=== PATIENT | male | born 1940 | race Caucasian/White ===

== ENCOUNTER → 2017-12-04 | Outpatient (CLI) | payer MEDICARE, OTHER ==
[~2017-12-04] MED LIST: AMLO10; AMLO10 PO; DOCU100 PO; ELIQUIS5 MG PO; FISH OIL-OMEGA1 EACH PO; FOLI1 PO; GINKGO BILOBA30 MG PO; MULTI VITAMIN1 EACH PO; TAMS.4ER PO; XIIDRA1 EACH; XIIDRA1 EACH BOTHEYES
[2017-12-04 13:40] LABS: Stool Occult Bld Immuno 1 Negative (NEGATIVE)
== END | disposition home or self-care (01) ==
LOC: LAB 08:50
PROVIDERS: Internal Medicine Gastroenterology
DX: K57.90 Diverticulosis of intestine, part unspecified, without perforation or abscess without bleeding (principal); R10.32 Left lower quadrant pain; Z86.010 Personal history of colon polyps
CPT/HCPCS: 82274

== ENCOUNTER 2018-07-17 11:22 | Day surgery (SDC) | payer MEDICARE, OTHER ==
[~2018-07-17] VITALS: Ht 182.9 cm; Wt 83.9 kg
[~2018-07-17 11:22] MED LIST changes: -GINKGO BILOBA30 MG PO; -XIIDRA1 EACH
[2018-07-17] MEDS ORDERED: GINKGO BILOBA30 MG (12:01)
[2018-07-17] MEDS ORDERED: XIIDRA1 EACH (12:01)
== END 2018-07-17 14:20 | disposition home or self-care (01) ==
LOC: ORSCSDS 11:22
PROVIDERS: Internal Medicine Gastroenterology
PROC: 0DBK8ZX Excision of Ascending Colon, Via Natural or Artificial Opening Endoscopic, Diagnostic (ICD-10-PCS; principal; 2018-07-17 13:00)
DX: Z12.11 Encounter for screening for malignant neoplasm of colon (principal); D12.2 Benign neoplasm of ascending colon; K57.30 Diverticulosis of large intestine without perforation or abscess without bleeding; Z86.010 Personal history of colon polyps; G25.0 Essential tremor; I10 Essential (primary) hypertension; I48.2 Chronic atrial fibrillation; Z87.891 Personal history of nicotine dependence; Z79.01 Long term (current) use of anticoagulants; Z79.899 Other long term (current) drug therapy
CPT/HCPCS: 88305

== ENCOUNTER 2018-08-29 20:17 | Observation (INO) | payer MEDICARE, OTHER ==
[~2018-08-29] VITALS: Ht 182.9 cm; Wt 81.7 kg
[~2018-08-29 20:17] MED LIST changes: +GINKGO BILOBA30 MG PO; +XIIDRA1 EACH
[2018-08-29 20:44] LABS: BASOPHILS ABSOLUTE AUTO 0.01 K/mm3 (0.00-0.23); BASOPHILS PERCENT AUTO 0 % (0-2); EOSINOPHILS ABSOLUTE AUTO 0.11 K/mm3 (0.00-0.68); EOSINOPHILS PERCENT AUTO 2 % (0-6); Hemoglobin 13.6 g/dL (13.5-17.5); IMMATURE GRAN ABSOLUTE AUTO 0.01 K/mm3 (0.00-0.10); IMMATURE GRAN PERCENT AUTO 0 % (0-1); LYMPHOCYTES ABSOLUTE AUTO 1.26 K/mm3 (0.84-5.20); LYMPHOCYTES PERCENT AUTO 20 % (21-46); MONOCYTES ABSOLUTE AUTO 0.55 K/mm3 (0.16-1.47); MONOCYTES PERCENT AUTO 9 % (4-13); Mean Corpuscular HGB 31.8 pg (26.0-34.0); Mean Corpuscular HGB Conc 32.4 g/dL (31.5-36.5); Mean Corpuscular Volume 98 fL (80-100); Mean Platelet Volume 9.6 fL (9.1-12.4); NEUTROPHILS ABSOLUTE AUTO 4.34 K/mm3 (1.96-9.15); NEUTROPHILS PERCENT AUTO 69 % (41-73); Platelet Count 202 K/mm3 (150-400); RDW Coefficient Variation 13.2 % (11.7-14.2); RDW Standard Deviation 47.6 fL (35.1-46.3); Red Blood Cell Count 4.28 M/mm3 (4.30-5.90); White Blood Cell Count 6.28 K/mm3 (4.00-11.30)
[2018-08-29 21:15] LABS: Alanine Aminotransfer (ALT/SGP 22 U/L (12-78); Albumin, Blood 4.1 g/dL (3.4-5.0); Albumin/Globulin Ratio 1.1 (0.8-1.8); Alk Phos 122 U/L (50-136); Anion Gap 6 mmol/L (6-16); Aspartate Aminotrans (AST/SGOT 17 U/L (12-37); Bilirubin, Total 0.5 mg/dL (0.1-1.0); Blood Urea Nitrogen 14 mg/dL (8-24); Bun/Creatinine Ratio 16.2 (12.0-20.0); CO2, Blood 31 mmol/L (21-32); Calcium, Blood 9.2 mg/dL (8.5-10.1); Chloride, Blood 104 mmol/L (98-108); Creatinine, Blood 0.87 mg/dL (0.60-1.20); Globulin, Blood 3.7 g/dL (2.2-4.0); Glomerular Filtration Rate >60 (60-); Glucose, Blood 100 mg/dL (70-99); Potassium, Blood 3.5 mmol/L (3.5-5.5); Sodium, Blood 141 mmol/L (136-145); Total Protein, Blood 7.8 g/dL (6.4-8.2)
[2018-08-29 22:02] LABS: Source, Urine Clean Catch
[2018-08-29 22:09] LABS: Bilirubin, Urine Neg (Neg); Blood, Urine Neg (Neg); Glucose Qualitative, Urine Neg (Neg); Ketones, Urine Neg (Neg); Leukocyte Esterase, Urine Neg (Neg); Nitrite, Urine Neg (Neg); Protein, Urine Neg (Neg); Specific Gravity, Urine 1.005 (1.003-1.022); Urobilinogen, Urine NORM (Normal)
[2018-08-29 22:20] LABS: Appearance, Urine Clear (Clear); Color, Urine Yellow (P-Yellow)
[2018-08-29 23:00] LABS: International Normalized Ratio 1.17; Prothrombin Time Results 11.9 Sec (9.7-11.5)
[2018-08-29 23:02] LABS: Hematocrit 39.5 % (37.0-53.0); Hemoglobin 12.7 g/dL (13.5-17.5)
[2018-08-30 00:57] LABS: Hematocrit 37.3 % (37.0-53.0); Hemoglobin 12.4 g/dL (13.5-17.5)
[2018-08-30 06:48] LABS: Hematocrit 38.6 % (37.0-53.0); Hemoglobin 12.6 g/dL (13.5-17.5); Mean Corpuscular HGB 31.3 pg (26.0-34.0); Mean Corpuscular HGB Conc 32.6 g/dL (31.5-36.5); Mean Corpuscular Volume 96 fL (80-100); Mean Platelet Volume 9.9 fL (9.1-12.4); Platelet Count 175 K/mm3 (150-400); RDW Coefficient Variation 13.2 % (11.7-14.2); RDW Standard Deviation 47.2 fL (35.1-46.3); Red Blood Cell Count 4.02 M/mm3 (4.30-5.90); White Blood Cell Count 4.91 K/mm3 (4.00-11.30)
[2018-08-30 06:51] LABS: Hematocrit 38.7 % (37.0-53.0); Hemoglobin 12.7 g/dL (13.5-17.5)
[2018-08-30 07:12] LABS: Alanine Aminotransfer (ALT/SGP 18 U/L (12-78); Albumin, Blood 3.5 g/dL (3.4-5.0); Alk Phos 102 U/L (50-136); Anion Gap 6 mmol/L (6-16); Aspartate Aminotrans (AST/SGOT 13 U/L (12-37); Bilirubin, Total 0.5 mg/dL (0.1-1.0); Blood Urea Nitrogen 9 mg/dL (8-24); Bun/Creatinine Ratio 11.8 (12.0-20.0); CO2, Blood 29 mmol/L (21-32); Calcium, Blood 8.6 mg/dL (8.5-10.1); Chloride, Blood 106 mmol/L (98-108); Creatinine, Blood 0.76 mg/dL (0.60-1.20); Globulin, Blood 3.4 g/dL (2.2-4.0); Glomerular Filtration Rate >60 (60-); Glucose, Blood 105 mg/dL (70-99); Potassium, Blood 3.4 mmol/L (3.5-5.5); Sodium, Blood 141 mmol/L (136-145); Total Protein, Blood 6.9 g/dL (6.4-8.2)
[2018-08-30 13:12] LABS: Hematocrit 42.1 % (37.0-53.0); Hemoglobin 13.6 g/dL (13.5-17.5)
[2018-08-30 18:43] LABS: Hemoglobin 13.9 g/dL (13.5-17.5)
[2018-08-31 04:25] LABS: Hematocrit 40.9 % (37.0-53.0); Hemoglobin 13.5 g/dL (13.5-17.5)
== END 2018-08-31 12:08 | disposition home or self-care (01) ==
LOC: ER 20:17 → SURS 08-30 00:06
PROVIDERS: Emergency Medicine; Internal Medicine
DX: K62.5 Hemorrhage of anus and rectum (principal); I10 Essential (primary) hypertension; D50.0 Iron deficiency anemia secondary to blood loss (chronic); N40.0 Benign prostatic hyperplasia without lower urinary tract symptoms; N13.8 Other obstructive and reflux uropathy; E87.6 Hypokalemia; I48.91 Unspecified atrial fibrillation; I97.89 Other postprocedural complications and disorders of the circulatory system, not elsewhere classified; K57.30 Diverticulosis of large intestine without perforation or abscess without bleeding; K57.90 Diverticulosis of intestine, part unspecified, without perforation or abscess without bleeding; Z79.899 Other long term (current) drug therapy; Z86.010 Personal history of colon polyps; Z87.891 Personal history of nicotine dependence; Z79.01 Long term (current) use of anticoagulants
CPT/HCPCS: 36415; 71275; 74175; 80053; 81003; 85014; 85018; 85025; 85027; 85610; 86850; 86900; 86901; 93005; 93010; 96374; 99285-25; C9132; J3480; J7040; J7120; Q9967

== ENCOUNTER 2019-06-23 08:30 | Day surgery (SDC) | payer MEDICARE, OTHER ==
[~2019-06-23] VITALS: Ht 182.9 cm; Wt 85.1 kg
[2019-06-23] MEDS ORDERED: Inderal40 MG (09:58)
[2019-06-23] MEDS ORDERED: LOSA25 PO (09:59)
== END 2019-06-23 11:55 | disposition home or self-care (01) ==
LOC: ORSCSDS 08:30
PROVIDERS: Internal Medicine Gastroenterology
PROC: 0DB68ZX Excision of Stomach, Via Natural or Artificial Opening Endoscopic, Diagnostic (ICD-10-PCS; principal; 2019-06-23 10:45)
PROC: 0DB58ZX Excision of Esophagus, Via Natural or Artificial Opening Endoscopic, Diagnostic (ICD-10-PCS; principal; 2019-06-23 10:45)
PROC: 0D757ZZ Dilation of Esophagus, Via Natural or Artificial Opening (ICD-10-PCS; principal; 2019-06-23 10:45)
DX: R13.14 Dysphagia, pharyngoesophageal phase (principal); K22.70 Barrett's esophagus without dysplasia; K22.2 Esophageal obstruction; K44.9 Diaphragmatic hernia without obstruction or gangrene; I10 Essential (primary) hypertension; Z87.891 Personal history of nicotine dependence; I48.21 Permanent atrial fibrillation; Z79.01 Long term (current) use of anticoagulants; I25.10 Atherosclerotic heart disease of native coronary artery without angina pectoris; Z79.899 Other long term (current) drug therapy
CPT/HCPCS: 87081; 88305; 88342; J2704; J7120

== ENCOUNTER 2019-11-02 07:26 | Inpatient (IN) | payer MEDICARE, OTHER ==
[~2019-11-02] VITALS: Ht 177.8 cm; Wt 82.7 kg
[~2019-11-02 07:26] MED LIST changes: -AMLO10 PO; -DOCU100 PO; -ELIQUIS5 MG PO; -FOLI1 PO; -TAMS.4ER PO
[2019-11-02 07:56] LABS: BASOPHILS ABSOLUTE AUTO 0.01 K/mm3 (0.00-0.23); BASOPHILS PERCENT AUTO 0 % (0-2); EOSINOPHILS ABSOLUTE AUTO 0.09 K/mm3 (0.00-0.68); EOSINOPHILS PERCENT AUTO 2 % (0-6); Hematocrit 33.3 % (37.0-53.0); Hemoglobin 10.5 g/dL (13.5-17.5); IMMATURE GRAN ABSOLUTE AUTO 0.05 K/mm3 (0.00-0.10); IMMATURE GRAN PERCENT AUTO 1 % (0-1); LYMPHOCYTES PERCENT AUTO 10 % (21-46); MONOCYTES ABSOLUTE AUTO 0.46 K/mm3 (0.16-1.47); MONOCYTES PERCENT AUTO 8 % (4-13); Mean Corpuscular HGB 30.1 pg (26.0-34.0); Mean Corpuscular HGB Conc 31.5 g/dL (31.5-36.5); Mean Corpuscular Volume 95 fL (80-100); Mean Platelet Volume 9.8 fL (9.1-12.4); NEUTROPHILS ABSOLUTE AUTO 4.88 K/mm3 (1.96-9.15); NEUTROPHILS PERCENT AUTO 80 % (41-73); Platelet Count 158 K/mm3 (150-400); RDW Coefficient Variation 13.2 % (11.7-14.2); RDW Standard Deviation 46.1 fL (35.1-46.3); Red Blood Cell Count 3.49 M/mm3 (4.30-5.90); White Blood Cell Count 6.09 K/mm3 (4.00-11.30)
[2019-11-02 08:17] LABS: Alanine Aminotransfer (ALT/SGP 32 U/L (12-78); Albumin, Blood 3.2 g/dL (3.4-5.0); Albumin/Globulin Ratio 0.9 (0.8-1.8); Alk Phos 169 U/L (50-136); Anion Gap 5 mmol/L (6-16); Aspartate Aminotrans (AST/SGOT 32 U/L (12-37); Bilirubin, Total 0.6 mg/dL (0.1-1.0); Blood Urea Nitrogen 16 mg/dL (8-24); Bun/Creatinine Ratio 15.7 (12.0-20.0); CO2, Blood 29 mmol/L (21-32); Calcium, Blood 8.2 mg/dL (8.5-10.1); Chloride, Blood 103 mmol/L (98-108); Creatinine, Blood 1.02 mg/dL (0.60-1.20); Globulin, Blood 3.5 g/dL (2.2-4.0); Glomerular Filtration Rate >60 (60-); Glucose, Blood 118 mg/dL (70-99); Magnesium, Blood 1.4 mg/dL (1.6-2.4); Sodium, Blood 137 mmol/L (136-145); Total Protein, Blood 6.7 g/dL (6.4-8.2)
[2019-11-02 08:18] LABS: Troponin I <0.015 ng/mL (0.000-0.040)
[2019-11-02 09:47] LABS: Source, Urine Clean Catch
[2019-11-02 09:50] LABS: Bilirubin, Urine Neg (Neg); Blood, Urine 2+ (Neg); Glucose Qualitative, Urine Neg (Neg); Ketones, Urine Neg (Neg); Leukocyte Esterase, Urine Neg (Neg); Nitrite, Urine Neg (Neg); Protein, Urine 2+ (Neg); Urobilinogen, Urine NORM (Normal)
[2019-11-02 09:58] LABS: Appearance, Urine Clear (Clear); Color, Urine Pale Yellow (P-Yellow)
[2019-11-02 10:01] LABS: Bacteria Rare /hpf; Squamous Epithelial Cells Few /hpf (Few)
[2019-11-02 10:47] LABS: Source, Urine Catheter
[2019-11-02 10:50] LABS: Bilirubin, Urine Neg (Neg); Blood, Urine 2+ (Neg); Glucose Qualitative, Urine Neg (Neg); Ketones, Urine Neg (Neg); Leukocyte Esterase, Urine Neg (Neg); Nitrite, Urine Neg (Neg); Protein, Urine 1+ (Neg); Urobilinogen, Urine NORM (Normal)
[2019-11-02 10:57] LABS: Appearance, Urine Clear (Clear); Color, Urine Yellow (P-Yellow)
[2019-11-02 10:58] LABS: Red Blood Cells, Urine 0-2 /hpf (0-2); White Blood Cells, Urine 0-2 /hpf (0-5)
[2019-11-02 10:59] LABS: Bacteria Rare /hpf; Squamous Epithelial Cells Rare /hpf (Few)
[2019-11-02 12:03] LABS: PO2 Arterial 55.3 mmHg (80-100); pH Blood Arterial 7.41 (7.35-7.45)
[2019-11-02] MEDS ORDERED: ELIQUIS5 MG PO (12:40)
[2019-11-02] MEDS ORDERED: AMLO10 PO (12:40)
[2019-11-02] MEDS ORDERED: FOLI1 PO (12:40)
[2019-11-02] MEDS ORDERED: TAMS.4ER PO (12:40)
[2019-11-02] MEDS ORDERED: PRILOSEC OTC20 MG PO (12:41)
[2019-11-02] MEDS ORDERED: Inderal40 MG PO (12:41)
[2019-11-02] MEDS ORDERED: LOSA25 PO (12:41)
[2019-11-02] MEDS ORDERED: ATORVASTATIN CA20 MG PO (12:42)
[2019-11-02] MEDS ORDERED: DOCU100 PO (14:31)
[2019-11-02 18:02] LABS: Hematocrit 34.6 % (37.0-53.0); Hemoglobin 11.1 g/dL (13.5-17.5); Mean Corpuscular HGB 30.1 pg (26.0-34.0); Mean Corpuscular HGB Conc 32.1 g/dL (31.5-36.5); Mean Corpuscular Volume 94 fL (80-100); Mean Platelet Volume 9.9 fL (9.1-12.4); Platelet Count 174 K/mm3 (150-400); RDW Coefficient Variation 13.1 % (11.7-14.2); RDW Standard Deviation 44.9 fL (35.1-46.3); Red Blood Cell Count 3.69 M/mm3 (4.30-5.90); White Blood Cell Count 8.85 K/mm3 (4.00-11.30)
--- NOTE | 2019-11-03 04:55 | NUR ---
1855 PT ARRIVED TO UNIT VIA STRETCHER. A/O X4. PLEASANT AND COOPERATIVE. DENIES, PAIN, NAUSEA, SOB. ON 2 L VIA NASAL CANNULA SATTING AT 96% PT WAS ORIENTED TO ROOM AND STAFF. LUCY PRESENT AND WAS PUT IN IN THE ER. DRAINING CLEAR YELLOW URINE. VSS. CURRENTLY ON BEDREST. WILL CONTINUE TO MONITOR.
[2019-11-03 06:04] LABS: BASOPHILS ABSOLUTE AUTO 0.02 K/mm3 (0.00-0.23); BASOPHILS PERCENT AUTO 0 % (0-2); EOSINOPHILS ABSOLUTE AUTO 0.12 K/mm3 (0.00-0.68); EOSINOPHILS PERCENT AUTO 2 % (0-6); Hematocrit 34.3 % (37.0-53.0); Hemoglobin 10.9 g/dL (13.5-17.5); IMMATURE GRAN ABSOLUTE AUTO 0.03 K/mm3 (0.00-0.10); IMMATURE GRAN PERCENT AUTO 0 % (0-1); LYMPHOCYTES ABSOLUTE AUTO 0.61 K/mm3 (0.84-5.20); LYMPHOCYTES PERCENT AUTO 8 % (21-46); MONOCYTES ABSOLUTE AUTO 0.71 K/mm3 (0.16-1.47); MONOCYTES PERCENT AUTO 9 % (4-13); Mean Corpuscular HGB 29.9 pg (26.0-34.0); Mean Corpuscular HGB Conc 31.8 g/dL (31.5-36.5); Mean Corpuscular Volume 94 fL (80-100); NEUTROPHILS ABSOLUTE AUTO 6.25 K/mm3 (1.96-9.15); NEUTROPHILS PERCENT AUTO 81 % (41-73); Platelet Count 181 K/mm3 (150-400); RDW Coefficient Variation 13.2 % (11.7-14.2); RDW Standard Deviation 45.5 fL (35.1-46.3); Red Blood Cell Count 3.65 M/mm3 (4.30-5.90); White Blood Cell Count 7.74 K/mm3 (4.00-11.30)
[2019-11-03 06:21] LABS: Anion Gap 6 mmol/L (6-16); Blood Urea Nitrogen 17 mg/dL (8-24); Bun/Creatinine Ratio 17.6 (12.0-20.0); CO2, Blood 29 mmol/L (21-32); Calcium, Blood 8.3 mg/dL (8.5-10.1); Chloride, Blood 103 mmol/L (98-108); Creatinine, Blood 0.97 mg/dL (0.60-1.20); Glomerular Filtration Rate >60 (60-); Glucose, Blood 106 mg/dL (70-99); Magnesium, Blood 1.8 mg/dL (1.6-2.4); Potassium, Blood 3.7 mmol/L (3.5-5.5); Sodium, Blood 138 mmol/L (136-145)
--- NOTE | 2019-11-03 07:37 | NUR ---
BUSINESS PROCESS REPRESENTATIVE SUMMARY PT A/O X4 WITH BASELINE DEMENTIA. DENIES SOB, NAUSEA, CHEST PAIN. PT DID COMPLAIN MINOR BACK PAIN FROM LAYING ON THE BED. PT REPOSITIONED AND PILLOW WAS PLACED WELL A HEATING PAD. HE STATED THAT HAS HELPED A LOT. ORTHOSTATIC VITALS WERE NEGATIVE. HE AMBULATED TO BATHROOM WITH FWW WITH 1 ASSIST. HE DID NOT COMPLAIN OF DIZZINESS AND AMBULATED WELL PER GLUE MIXER REPORT. CHRONIC A.FIB ON EQLIUS. PT HAD A 3.1 SECOND PAUSE PER PRESSURE VESSEL INSPECTOR EARLIER IN THE SHIFT AND CONVERTED BACK TO A. FIB IN THE HIGH 40'S. HE WAS ASYMPTOMATIC. HE HAD ANOTHER 3 SECOND PAUSE AND CONVERTED BACK TO A. FIB IN HIGH 50'S AT 0630. HE WAS TALKING ON THE PHONE AND FELT AT THIS TIME. DR. RUVALCABA NOTIFIED. NO NEW ORDERS. PT SLEPT WELL TONIGHT. COOPERATIVE AND PLEASANT. CALL LIGHT WITHIN REACH.
[2019-11-03 11:28] LABS: Free Thyroxine 1.16 ng/dL (0.70-1.60)
--- NOTE | 2019-11-03 14:41 | NUR ---
PATIENT PERMISSION PATIENT PROVIDED THIS STUDENT NURSE PERMISSION TO PROVIDE CARE ON 11/03/2019 FROM [id number].
--- NOTE | 2019-11-03 17:30 | NUR ---
SHIFT SUMMARY PT AXO, PLEASANT AND COOPERATIVE WITH CARE. PT ON TELE RUNNING A FIB AT [address] CHAMBERS NOTIFIED OF BRADYCARDIA ON MEDICAL DEVICE AND THIS AM, INSTRUCTED NURSE TO GIVE MEDS PER EMAR INCLUDING PROPRANOLOL. PT UP WITH 1 ASSIST WITH FWW AND GB. AYALA REMOVED AT 1140, AWAITING PT VOID AT THIS TIME. AT 1616 PT HAD 217 RETAINED IN BLADDER. PT DENIED URGE TO VOID AT THAT TIME. BED IN LOW POSITION, CALL LIGHT WITHIN REACH. FAMILY PRESENT IN ROOM THROUGHOUT THE SHIFT. PT 97% ON 3L, ATTEMPTING TO TITRATE DOWN AT THIS TIME. AT 1710 EMA MACIAS CALLED FROM PCU TO NOTIFY NURSE THAT PT HAD ANOTHER 3 SECOND PAUSE. STRIP ON CHART. DR CHAMBERS NOTIFIED WHO ORDERED CARDIOLOGY CONSULT.
--- NOTE | 2019-11-04 04:24 | NUR ---
SHIFT SUMMARY: PT BRADYCARDIC TONIGHT WITH PULSE OF 48. RECHECKED MANUALLY AT 0540, PULSE 68. PT AWAKE, ALERT, AND RESPONSIVE. PT DENIES DIZZINESS OR LIGHTHEADEDNESS UPON SITTING/STANDING/AMBULATING. ENCOURAGED TO CALL FOR ASSIST EACH TIME PT GETS UP. BED ALARM TURNED ON D/T ONE ATTEMPT TO SELF T/F. PT HAS VOIDED 1X SO FAR TONIGHT. LACERATIONS ON OCCIPITAL SCALP JONAS AND SCABBED. MAINTAINING SATS 90-92% ON RA. NO ACUTE CHANGES OVERNIGHT. WILL CONT TO MONITOR.
[2019-11-04 09:12] LABS: CHOL/HDL RATIO 2.4; Cholesterol 80 mg/dL (50-200); HDL Cholesterol 33 mg/dL (>39); LDL/HDL RATIO 1.1; Low Density Lipoprotein Chol 37 mg/dL (0-110); Triglycerides 51 mg/dL (30-160); Very Low Density Lipoprot Chol 10 mg/dL (6-32)
--- NOTE | 2019-11-04 18:36 | NUR ---
PT IS A/OX3, PLEASANT AND COOPERATIVE, THE PT IS UP WITH STAND BY ASSIST, THE PT APPEARS TO BE BREATHING EASILY ON RA, AT THIS TIME, PTS HR THIS AM HAD DROPPED INTO THE 50'S FOR A SHORT TIME, HOWEVER PER TELE HE HAS BEEN IN THE 70-80'S RANGE, THE PT DENIED ANY CHEST PAIN T/O THE DAY, THIS AFTERNOON THE PT REPORTED BACK PAIN A CALL WAS MADE TO DR. CHAMBERS AND TYLENOL WAS ORDERED FOR PAIN, EGG CRATE MATTRESS APPLIED TO THE BED PER HIS REQUEST, CALL LIGHT IN REACH, FAMILY AT THE BEDSIDE AT THIS TIME
--- NOTE | 2019-11-05 04:11 | NUR ---
SHIFT SUMMARY ADMITTED FOR SYNCOPE. FULL CODE. IS POA. FOUND TO BE BRADYCARDIC. CARDIAC CONSULT ELINA IS MONITORING FOR BRADYCARDIA. TELEMETRY THIS SHIFT: AFIB @ 75 BPM THIS SHIFT. HOME MED PROPANALOL DC'D. PT HAS RESCHEDULED [facility] FOLLOW UP FOR AAA REPAIR. CARDIAC DIET, RA, A&O X4, STANDBY ASSIST TO BATHROOM. MAY DC TODAY IF CONTINUING TO SHOW IMPROVEMENT. HX: FELL AT HOME, CAD, COPD, BPH, AFIB, HTN, TREMORS.
--- NOTE | 2019-11-05 13:56 | NUR ---
PT DISCHARGED THE PT VERBALIZED UNDERSTANDING OF THE DC INSTRUCTIONS, APPOINTMENTS WERE MADE FOR FOLLW UP PRIOR TO THE PTS DC, A ZOEL HEART MONITOR WAS APPLIED BY THE HEART CENTER AND INSTRUCTION WERE GIVEN BY THEM TO THE PT, HE VERBALIZED THAT HE UNDERSTOOD THIER INSTRUCTIONS, PT WAS TRANSFERED VIA WHEELCHAIR, THE PT APPEARED TO BE BREATHING EASILY ON RA, THE PT DENIED ANY DIZZINESS/LIGHTHEADEDNESS T/O THE DAY
== END 2019-11-05 13:55 | disposition home or self-care (01) | DRG 310 ==
LOC: ER 07:26 → ERHOLD 13:17 → MEDS 19:55
PROVIDERS: Emergency Medicine; Hospitalist; Internal Medicine Cardiovascular Disease; ADMIT Hospitalist
DX: I49.8 Other specified cardiac arrhythmias (principal); T44.7X5A Adverse effect of beta-adrenoreceptor antagonists, initial encounter; R09.02 Hypoxemia; K21.9 Gastro-esophageal reflux disease without esophagitis; I48.21 Permanent atrial fibrillation; N40.1 Benign prostatic hyperplasia with lower urinary tract symptoms; R33.8 Other retention of urine; I71.9 Aortic aneurysm of unspecified site, without rupture; I25.10 Atherosclerotic heart disease of native coronary artery without angina pectoris; I11.9 Hypertensive heart disease without heart failure; I34.0 Nonrheumatic mitral (valve) insufficiency; I87.2 Venous insufficiency (chronic) (peripheral); E66.3 Overweight; E83.42 Hypomagnesemia; J44.9 Chronic obstructive pulmonary disease, unspecified; E78.5 Hyperlipidemia, unspecified; R25.1 Tremor, unspecified; Z79.899 Other long term (current) drug therapy; Z79.01 Long term (current) use of anticoagulants; Z87.891 Personal history of nicotine dependence; Z68.26 Body mass index [BMI] 26.0-26.9, adult
CPT/HCPCS: 36415; 36600; 51702; 51798; 70450; 71046; 80048; 80053; 80061; 81001; 82803; 83735; 84439; 84443; 84484; 85025; 85027; 93005; 93010; 93306; 96365-59; 96366-59; 97110; 97116; 97161; 99285-25; A9270; G0378; J3475

== ENCOUNTER → 2020-02-24 | Outpatient (CLI) | payer MEDICARE, OTHER ==
[~2020-02-24] MED LIST changes: +AMLO10 PO; +ATORVASTATIN CA20 MG PO; +DOCU100 PO; +ELIQUIS5 MG PO; +FOLI1 PO; +Inderal40 MG PO; +LOSA25 PO; +PRILOSEC OTC20 MG PO; +TAMS.4ER PO
[2020-02-24 14:10] LABS: Stool Occult Bld Immuno 1 Positive (NEGATIVE)
== END | disposition home or self-care (01) ==
LOC: LAB 08:43 → LAB SHORT 08:43
PROVIDERS: Internal Medicine Cardiovascular Disease
DX: I48.91 Unspecified atrial fibrillation (principal)
CPT/HCPCS: G0328

== ENCOUNTER 2020-03-19 12:49 | Day surgery (SDC) | payer MEDICARE, OTHER ==
[~2020-03-19] VITALS: Ht 182.9 cm; Wt 85.5 kg
--- NOTE | 2020-03-19 14:21 | NUR ---
Ambulatory in Day Surgery. History, Chart, Medications and Allergies reviewed before start of procedure. Lungs clear T/O to Auscultation. Patient confirms NPO status and agrees with scheduled surgery. Pre-Op teaching done. Pt verbalizes understanding. Patient States Post-Procedure ride home has been arranged.
--- NOTE | 2020-03-19 14:43 | NUR ---
03/19/20 1443 ANNETTE AWAN History, Chart, Medications and Allergies reviewed before start of procedure. 3-LEAD EKG REVIEWED WITH PHYSICIAN PRIOR TO START OF PROCEDURE. O2 VIA N/C INTACT THROUGHOUT SEDATION/PROCEDURE. MONITOR INTACT WITH CONTINUOUS PULSE OXIMETRY AND INTERMITTENT BP. PATIENT DETERMINED TO BE ASA APPROPRIATE FOR PROPOFOL SEDATION PRIOR TO START OF PROCEDURE BY DR. EDDY
--- NOTE | 2020-03-19 15:42 | NUR ---
PT ASSISTED TO THE BATHROOM VIA WHEELCHAIR. IV DC'D INTACT.
--- NOTE | 2020-03-19 15:53 | NUR ---
Discharge instructions reviewed with patient. Patient verbalizes understanding. Copy given to patient to take home. Patient States Post-Procedure ride home has been arranged. Discharged via wheelchair to private car for ride home.
[2020-04-24] MEDS ORDERED: ONDA4ODT MM (14:02)
== END 2020-03-19 15:55 | disposition home or self-care (01) ==
LOC: ORSCMMR 12:49 → ORD 13:30 → ORSCMMR 15:55
PROVIDERS: Internal Medicine Gastroenterology
PROC: 0D568ZZ Destruction of Stomach, Via Natural or Artificial Opening Endoscopic (ICD-10-PCS; principal; 2020-03-19 13:30)
DX: R19.5 Other fecal abnormalities (principal); K31.819 Angiodysplasia of stomach and duodenum without bleeding; K57.10 Diverticulosis of small intestine without perforation or abscess without bleeding; K44.9 Diaphragmatic hernia without obstruction or gangrene; D64.9 Anemia, unspecified; Z87.891 Personal history of nicotine dependence; I48.91 Unspecified atrial fibrillation; Z79.899 Other long term (current) drug therapy; Z11.59 Encounter for screening for other viral diseases
CPT/HCPCS: 36415; 82607; 82728; 82746; 82784; 83516; 83540; 83550; 84439; 84443; 85045; 86255; J2704; J7120; U0002

== ENCOUNTER 2020-03-28 07:22 | Observation (INO) | payer MEDICARE, OTHER ==
[2020-03-28] MEDS ORDERED: AMLO10 PO (07:49)
[2020-03-28] MEDS ORDERED: ACET500 PO (07:49)
[2020-03-28] MEDS ORDERED: ELIQUIS2.5 MG PO (07:50)
[2020-03-28] MEDS ORDERED: ATOR20 PO (07:50)
[2020-03-28] MEDS ORDERED: DOCU100 PO (07:50)
[2020-03-28] MEDS ORDERED: CALCIPOTRIENE60 GM TOP (07:50)
[2020-03-28] MEDS ORDERED: FERSU300 PO (07:51)
[2020-03-28] MEDS ORDERED: FOLI1 PO (07:51)
[2020-03-28] MEDS ORDERED: FISH OIL PO (07:51)
[2020-03-28] MEDS ORDERED: Ginkgo Biloba40 M1 PO (07:54)
[2020-03-28] MEDS ORDERED: ICAPS AREDS SO1 EACH (07:54)
[2020-03-28] MEDS ORDERED: TAMS.4ER PO (07:54)
[2020-03-28] MEDS ORDERED: Loratadine10 MG PO (07:54)
[2020-03-28] MEDS ORDERED: XIIDRA1 EACH BOTHEYES (07:55)
[2020-03-28 08:19] LABS: BASOPHILS ABSOLUTE AUTO 0.02 K/mm3 (0.00-0.23); BASOPHILS PERCENT AUTO 0 % (0-2); EOSINOPHILS ABSOLUTE AUTO 0.06 K/mm3 (0.00-0.68); EOSINOPHILS PERCENT AUTO 1 % (0-6); IMMATURE GRAN ABSOLUTE AUTO 0.05 K/mm3 (0.00-0.10); IMMATURE GRAN PERCENT AUTO 1 % (0-1); LYMPHOCYTES ABSOLUTE AUTO 0.54 K/mm3 (0.84-5.20); LYMPHOCYTES PERCENT AUTO 7 % (21-46); MONOCYTES ABSOLUTE AUTO 0.55 K/mm3 (0.16-1.47); MONOCYTES PERCENT AUTO 7 % (4-13); Mean Corpuscular HGB 25.4 pg (26.0-34.0); Mean Corpuscular Volume 85 fL (80-100); NEUTROPHILS ABSOLUTE AUTO 6.97 K/mm3 (1.96-9.15); NEUTROPHILS PERCENT AUTO 85 % (41-73); Platelet Count 213 K/mm3 (150-400); RDW Coefficient Variation 17.3 % (11.7-14.2); RDW Standard Deviation 51.7 fL (35.1-46.3); Red Blood Cell Count 3.54 M/mm3 (4.30-5.90); White Blood Cell Count 8.19 K/mm3 (4.00-11.30)
[2020-03-28 08:25] LABS: Calcium, Ionized (POC) 1.15 mmol/L (1.10-1.46); Chloride (POC) 102 mmol/L (98-108); Creatinine (POC) 0.9 mg/dL (0.8-1.3); Glucose (ISTAT POC) 106 mg/dL (70-99); Hemoglobin (POC) 10.2 g/dL (13.5-17.5); Potassium (POC) 3.8 mmol/L (3.5-5.5); Sodium (POC) 139 mmol/L (135-148); Total CO2 (POC) 25 mmol/L (21-32)
[2020-03-28 08:37] LABS: Alanine Aminotransfer (ALT/SGP 18 U/L (12-78); Albumin, Blood 2.8 g/dL (3.4-5.0); Albumin/Globulin Ratio 0.7 (0.8-1.8); Alk Phos 144 U/L (50-136); Anion Gap 6 mmol/L (6-16); Aspartate Aminotrans (AST/SGOT 19 U/L (12-37); Bilirubin, Total 0.8 mg/dL (0.1-1.0); Blood Urea Nitrogen 24 mg/dL (8-24); Bun/Creatinine Ratio 25.1 (12.0-20.0); CO2, Blood 27 mmol/L (21-32); Calcium, Blood 8.4 mg/dL (8.5-10.1); Chloride, Blood 106 mmol/L (98-108); Creatinine, Blood 0.96 mg/dL (0.60-1.20); Glomerular Filtration Rate >60 (60-); Glucose, Blood 106 mg/dL (70-99); Potassium, Blood 3.8 mmol/L (3.5-5.5); Sodium, Blood 139 mmol/L (136-145); Total Protein, Blood 6.8 g/dL (6.4-8.2)
--- NOTE | 2020-03-28 10:55 | NUR ---
echocardiogram with bubble study completed
[2020-03-28] MEDS ORDERED: LOSARTAN POTASS25 M2 PO (11:52)
[2020-03-28] MEDS ORDERED: OMEP20ER PO (11:53)
[2020-03-28] MEDS ORDERED: MULTI VITAMIN1 EACH PO (11:53)
[2020-03-28] MEDS ORDERED: MAGNESIUM OXID500 MG PO (14:44)
--- NOTE | 2020-03-28 17:12 | NUR ---
SHIFT SUMMARY: PT ARRIVED FROM THE ER AROUND 1430. PT ARRIVED TO THE UNIT VIA W/C. VSS. HE REPORTED NO PAIN OR NAUSEA DURING SHIFT. PT IS HAVING BLURRY VISION WHICH IS MAKING IT DIFFICULT FOR HIM TO READ THINGS. PT IS A&O AND IS ABLE TO AMBULATE TO THE RESTROOM WITH WALKER AND 1 PERSON STANDBY. DAUGHTER CAME TO ROOM WITH PT BUT IS NOW NOT IN THE ROOM. WILL CONTINUE TO MONITOR PT UNTIL GIVING REPORT TO NIGHT RN.
[2020-03-29 05:36] LABS: Hematocrit 25.7 % (37.0-53.0); Hemoglobin 7.9 g/dL (13.5-17.5); Mean Corpuscular HGB 25.6 pg (26.0-34.0); Mean Corpuscular HGB Conc 30.7 g/dL (31.5-36.5); Mean Corpuscular Volume 83 fL (80-100); Mean Platelet Volume 9.9 fL (9.1-12.4); Platelet Count 213 K/mm3 (150-400); RDW Coefficient Variation 17.4 % (11.7-14.2); RDW Standard Deviation 51.9 fL (35.1-46.3); Red Blood Cell Count 3.08 M/mm3 (4.30-5.90); White Blood Cell Count 5.36 K/mm3 (4.00-11.30)
[2020-03-29 05:56] LABS: Anion Gap 4 mmol/L (6-16); Blood Urea Nitrogen 19 mg/dL (8-24); Bun/Creatinine Ratio 21.5 (12.0-20.0); CO2, Blood 30 mmol/L (21-32); Calcium, Blood 8.2 mg/dL (8.5-10.1); Chloride, Blood 103 mmol/L (98-108); Creatinine, Blood 0.88 mg/dL (0.60-1.20); Glomerular Filtration Rate >60 (60-); Glucose, Blood 96 mg/dL (70-99); Potassium, Blood 4.1 mmol/L (3.5-5.5); Sodium, Blood 137 mmol/L (136-145)
--- NOTE | 2020-03-29 07:52 | NUR ---
ANESTHESIOLOGY MEDICAL DOCTOR SUMMARY Patient Alert and Oriented X4. slight short term memory deficit at times. Evening Neuro checks were completely benign at both 2030 and 0100 with exception of almost total left field cut. Toward morning at 0439, left sided peripheral vision had increased by approx 45%. No complaints of headache, dizziness or discomfort. Patient does have a very mild essential tremor that he has had for years in [facility].
--- NOTE | 2020-03-29 15:21 | NUR ---
PATIENT ALERT AND ORIENTED. ABLE TO MAKE NEEDS KNOW. DENIES PAIN AND DISCOMFORT. COOPERATIVE AND PLEASANT WITH STAFF. VITALS STABLE. THE ONLY NOTED DEFICIT WAS A VISUAL CUT TO HIS LEFT EYE. ASSIST FROM THAT THE PATIENT IS PROGRESSING WELL. PATIENT RESTING IN ROOM AT THIS TIME. WILL CONTINUE TO MONITOR AND PROVIDE CARE NEEDED.
--- NOTE | 2020-03-29 16:28 | NUR ---
Initial spiritual care note: Mr. Schultz accepted prayer at [facility]. He has a strong joann and is deeply connected to his joann community. His doctor osteopathic is making hospital visits, providing prayer and spiritism sales counselor. No needs presented. I will remain available.
--- NOTE | 2020-03-30 06:16 | NUR ---
SHIFT SUMMARY A/O, ABLE TO MAKE NEEDS KNOWN. COOPERATIVE WITH CARE. CALLS AND ANSWERS QUESTIONS APPROPRIATELY. UP /c SBA TO BATHROOM WITH FWW; STEADY GAIT NOTED. NO C/O PAIN/DISCOMFORT. STATED ABLE TO REST MUCH OF THE NIGHT. TELE RUNNING AFIB IN 60's PER PCU OFFICE MANAGER RECEPTIONIST. ANTICIPATING DC TODAY /c HOME HEALTH. NO ACUTE CHANGES NOTED OVERNIGHT. BED REAMINS IN LOWEST POSITION. CALL LIGHT AND BELONGINGS WITHIN REACH. WCTM. REPORT TO ONCOMING RN.
--- NOTE | 2020-03-30 07:18 | NUR ---
ASSUMED PATIENT CARE. PATIENT RESTING COMFORTABLY IN BED, NO SIGNS OF ACUTE DISTRESS, WCTM.
[2020-03-30] MEDS ORDERED: ASPI81CH PO (14:46)
--- NOTE | 2020-03-30 15:17 | NUR ---
PATIENT PROVIDED DISCHARGE INFO REGARDING FOLLOW-UP PLANS, REASONS TO CALL DOCTOR, AND MEDICATION INFO. PATIENT AND FAMILY VERBALIZED UNDERSTANDING. NO SIGNS OF ACUTE DISTRESS.
[2020-04-24] MEDS ORDERED: ONDA4ODT MM (14:02)
== END 2020-03-30 15:42 | disposition home health service (06) ==
LOC: ER 07:22 → MEDS 11:07 → ERHOLD 11:07 → MEDS 14:28
PROVIDERS: Emergency Medicine; Nurse Practitioner Acute Care; ADMIT Internal Medicine
DX: I63.9 Cerebral infarction, unspecified (principal); I71.4 Abdominal aortic aneurysm, without rupture; I48.91 Unspecified atrial fibrillation; N40.0 Benign prostatic hyperplasia without lower urinary tract symptoms; I10 Essential (primary) hypertension; Z79.82 Long term (current) use of aspirin; Z79.899 Other long term (current) drug therapy; E78.5 Hyperlipidemia, unspecified; Z87.891 Personal history of nicotine dependence; D50.9 Iron deficiency anemia, unspecified; Z79.01 Long term (current) use of anticoagulants
CPT/HCPCS: 36415; 70450; 70496; 70498; 80047; 80048; 80053; 85014; 85025; 85027; 93005; 93010; 93306; 96360-59; 96361; 97112; 97162; 97165; 97535; 99285-25; A9270-GY; G0378; J7030; Q9967

== ENCOUNTER 2020-05-12 09:06 | Day surgery (SDC) | payer MEDICARE, OTHER ==
[~2020-05-12] VITALS: Ht 182.9 cm; Wt 80.5 kg
[~2020-05-12 09:06] MED LIST changes: +ACET500 PO; +ASPI81CH PO; +ATOR20 PO; +CALCIPOTRIENE60 GM TOP; +ELIQUIS2.5 MG PO; +FERSU300 PO; +FISH OIL PO; +Ginkgo Biloba40 M1 PO; +ICAPS AREDS SO1 EACH; +LOSARTAN POTASS25 M2 PO; +Loratadine10 MG PO; +MAGNESIUM OXID500 MG PO; +OMEP20ER PO; +ONDA4ODT MM
== END 2020-05-12 12:00 | disposition home or self-care (01) ==
LOC: ORSCSDS 09:06
PROVIDERS: Internal Medicine Gastroenterology
PROC: 0D568ZZ Destruction of Stomach, Via Natural or Artificial Opening Endoscopic (ICD-10-PCS; principal; 2020-05-12 10:30)
DX: K31.819 Angiodysplasia of stomach and duodenum without bleeding (principal); D50.9 Iron deficiency anemia, unspecified; I10 Essential (primary) hypertension; Z87.891 Personal history of nicotine dependence; I48.91 Unspecified atrial fibrillation; Z79.01 Long term (current) use of anticoagulants; Z79.899 Other long term (current) drug therapy
CPT/HCPCS: J2405; J2704; J7120

== ENCOUNTER → 2020-06-01 | Outpatient (CLI) | payer MEDICARE, OTHER ==
[2020-06-01 11:00] LABS: BASOPHILS ABSOLUTE AUTO 0.02 K/mm3 (0.00-0.23); BASOPHILS PERCENT AUTO 0 % (0-2); EOSINOPHILS ABSOLUTE AUTO 0.17 K/mm3 (0.00-0.68); EOSINOPHILS PERCENT AUTO 3 % (0-6); Hematocrit 35.7 % (37.0-53.0); Hemoglobin 11.2 g/dL (13.5-17.5); IMMATURE GRAN ABSOLUTE AUTO 0.01 K/mm3 (0.00-0.10); IMMATURE GRAN PERCENT AUTO 0 % (0-1); LYMPHOCYTES ABSOLUTE AUTO 0.54 K/mm3 (0.84-5.20); LYMPHOCYTES PERCENT AUTO 11 % (21-46); MONOCYTES ABSOLUTE AUTO 0.46 K/mm3 (0.16-1.47); MONOCYTES PERCENT AUTO 9 % (4-13); Mean Corpuscular HGB 27.1 pg (26.0-34.0); Mean Corpuscular HGB Conc 31.4 g/dL (31.5-36.5); Mean Corpuscular Volume 86 fL (80-100); Mean Platelet Volume 9.5 fL (9.1-12.4); NEUTROPHILS ABSOLUTE AUTO 3.96 K/mm3 (1.96-9.15); NEUTROPHILS PERCENT AUTO 77 % (41-73); Platelet Count 195 K/mm3 (150-400); RDW Coefficient Variation 22.2 % (11.7-14.2); RDW Standard Deviation 68.9 fL (35.1-46.3); Red Blood Cell Count 4.14 M/mm3 (4.30-5.90); White Blood Cell Count 5.16 K/mm3 (4.00-11.30)
[2020-06-01 11:14] LABS: Alanine Aminotransfer (ALT/SGP 15 U/L (12-78); Albumin, Blood 3.3 g/dL (3.4-5.0); Albumin/Globulin Ratio 0.8 (0.8-1.8); Alk Phos 168 U/L (40-126); Anion Gap 5 mmol/L (6-16); Aspartate Aminotrans (AST/SGOT 16 U/L (12-37); Bilirubin, Total 0.5 mg/dL (0.1-1.0); Blood Urea Nitrogen 12 mg/dL (8-24); Bun/Creatinine Ratio 11.4 (12.0-20.0); CO2, Blood 34 mmol/L (21-32); Calcium, Blood 8.5 mg/dL (8.5-10.1); Chloride, Blood 100 mmol/L (98-108); Creatinine, Blood 1.05 mg/dL (0.60-1.20); Globulin, Blood 4.2 g/dL (2.2-4.0); Glomerular Filtration Rate >60 (60-); Glucose, Blood 112 mg/dL (70-99); Potassium, Blood 3.5 mmol/L (3.5-5.5); Sodium, Blood 139 mmol/L (136-145); Total Protein, Blood 7.5 g/dL (6.4-8.2)
== END | disposition home or self-care (01) ==
LOC: LAB SHORT 10:52 → LAB EV 10:52
PROVIDERS: Physician Assistant
DX: R60.9 Edema, unspecified (principal)
CPT/HCPCS: 80053; 83880; 85025

== ENCOUNTER 2020-07-28 08:39 | Day surgery (SDC) | payer MEDICARE, OTHER ==
[~2020-07-28] VITALS: Ht 182.9 cm; Wt 84.3 kg
[~2020-07-28 08:39] MED LIST changes: +CARBLEV25 PO; +FERROUS GLUCON PO; +FLUT.05NI
--- NOTE | 2020-07-28 09:22 | NUR ---
07/28/20 0922 Gisselle Beaver LIDOCAINE NEBULIZER TREATMENT PER MD MAURER PRIOR TO PROCEDURE.
== END 2020-07-28 10:55 | disposition home or self-care (01) ==
LOC: ORSCSDS 08:39
PROVIDERS: Internal Medicine Gastroenterology
PROC: 0D568ZZ Destruction of Stomach, Via Natural or Artificial Opening Endoscopic (ICD-10-PCS; principal; 2020-07-28 10:00)
DX: D50.9 Iron deficiency anemia, unspecified (principal); K31.819 Angiodysplasia of stomach and duodenum without bleeding; K44.9 Diaphragmatic hernia without obstruction or gangrene; I48.91 Unspecified atrial fibrillation; I10 Essential (primary) hypertension; Z86.73 Personal history of transient ischemic attack (TIA), and cerebral infarction without residual deficits; Z79.01 Long term (current) use of anticoagulants; Z79.899 Other long term (current) drug therapy; Z87.891 Personal history of nicotine dependence
CPT/HCPCS: J2001; J2704; J7120

== ENCOUNTER 2020-09-30 12:01 | Inpatient (IN) | payer MEDICARE, OTHER ==
[~2020-09-30] VITALS: Ht 182.9 cm; Wt 79.6 kg
[~2020-09-30 12:01] MED LIST changes: -CARBLEV25 PO; -FERROUS GLUCON PO; -OMEP20ER PO
[2020-09-30] MEDS ORDERED: LOSARTAN POTASS25 M2 PO (15:36)
[2020-09-30] MEDS ORDERED: ELIQUIS5 MG PO (15:37)
[2020-09-30] MEDS ORDERED: OMEP20ER PO (15:38)
[2020-09-30] MEDS ORDERED: TAMS.4ER PO (15:38)
[2020-09-30] MEDS ORDERED: AMLO10 PO (15:39)
[2020-09-30] MEDS ORDERED: CARBIDOPA-LEVO1 EA15 PO (15:39)
[2020-09-30] MEDS ORDERED: ATOR20 PO (15:40)
[2020-09-30] MEDS ORDERED: DOCU100 PO (16:01)
[2020-09-30] MEDS ORDERED: FOLI1 PO (16:01)
[2020-09-30] MEDS ORDERED: FERROUS GLUCON324 M6 PO (16:01)
[2020-09-30] MEDS ORDERED: FURO20 PO ×2 (16:02→18:00)
[2020-09-30] MEDS ORDERED: POTCHL20ER PO (16:02)
[2020-09-30] MEDS ORDERED: STOOL SOFTENER (17:58)
[2020-09-30] MEDS ORDERED: KLOR-CON M1010 MEQ PO (18:02)
--- NOTE | 2020-09-30 18:52 | NUR ---
PATIENT ARRIVED THIS HALF OF SHIFT FROM ED, TRANSFERED WITH SBA FROM [facility] TO BED, TOLERATED WELL. PATIENT DENIES CHEST PAIN/PRESSURE, DENIES DIZZINESS. PATIENT IS ALERT AND ORIENTED, VSS ON ROOM AIR. CALL LIGHT WITHIN REACH, FAMILY AT BEDSIDE.
[2020-10-01 04:33] LABS: Hematocrit 36.7 % (37.0-53.0); Hemoglobin 11.6 g/dL (13.5-17.5); Mean Corpuscular HGB 30.1 pg (26.0-34.0); Mean Corpuscular HGB Conc 31.6 g/dL (31.5-36.5); Mean Corpuscular Volume 95 fL (80-100); Mean Platelet Volume 10.4 fL (9.1-12.4); Platelet Count 136 K/mm3 (150-400); RDW Coefficient Variation 13.7 % (11.7-14.2); RDW Standard Deviation 48.3 fL (35.1-46.3); Red Blood Cell Count 3.85 M/mm3 (4.30-5.90); White Blood Cell Count 5.11 K/mm3 (4.00-11.30)
--- NOTE | 2020-10-01 04:38 | NUR ---
SHIFT SUMMARY PT WAS PLEASENT AND COOPERATIVE WITH CARE. PT DENIED ANY CHEST PAIN. WAS ON BED REST ALL NIGHT USING URNAL, NO REPORTED SYNCOPE. TELE SHOWED AFIB WITH HR IN THE 60'S, NO PAUSES. BP STABLE, O2 SATS LOW 90'S ON ROOM AIR WHEN SLEEPING. PT HAD A QUIET UNEVENTFUL NIGHT, CURRENTLY IN BED SLEEPING, PT HAS ONLY HAD WATER AND MEDICATIONS T/O SHIFT.
[2020-10-01 04:53] LABS: Anion Gap 7 mmol/L (6-16); Blood Urea Nitrogen 10 mg/dL (8-24); Bun/Creatinine Ratio 12.5 (12.0-20.0); CO2, Blood 29 mmol/L (21-32); Calcium, Blood 8.1 mg/dL (8.5-10.1); Chloride, Blood 105 mmol/L (98-108); Glomerular Filtration Rate >60 (60-); Glucose, Blood 91 mg/dL (70-99); Potassium, Blood 3.3 mmol/L (3.5-5.5); Sodium, Blood 141 mmol/L (136-145)
--- NOTE | 2020-10-01 07:57 | NUR ---
ASSUMED CARE FROM NOC RN PT WAS AWAKE AND LYING IN BED AT THE TIME OF REPORT. PT REPORTS PAIN IN HIS BACK AND AT THE TOP OF HIS HEAD FROM HIS FALL. PT REQUESTED TYLENOL WHICH WAS THEN ADMINISTERED WITH MORNING MEDICATIONS. PT IS SITTING AT THE SIDE OF THE BED HAVING BREAKFAST AT THIS TIME. VS STABLE; PT ON RA SATS ABOVE 92%.
--- NOTE | 2020-10-01 11:28 | NUR ---
Pastoral care visitation attempted. Pt was resting on his left side in bed and remained undisturbed. PC will remain available prospectively.
[2020-10-01 13:06] LABS: Influenza A, PCR NEGATIVE (NEGATIVE); Influenza B, PCR NEGATIVE (NEGATIVE); Resp Syncytial Virus, PCR NEGATIVE (NEGATIVE); SARS-Cov-2 (COVID-19) PCR, MMC NEGATIVE (NEGATIVE)
--- NOTE | 2020-10-01 15:25 | NUR ---
PACER PLACEMENT PT LEFT VIA STRETCHER FOR PACEMAKER PLACEMENT WITH DR MON AT APPROXIMATELY 1510
--- NOTE | 2020-10-01 17:42 | NUR ---
PACER PLACEMENT PT ARRIVED BACK FROM [facility]ART [facility]ENTER TO PCU AT APPROXIMATELY 1720 AFTER HAVING A PACER PLACED. VS STABLE, PT ON RA. PACER SITE C/D/I. PT DENIES CHEST PAIN OR DISCOMFORT AT THIS TIME
--- NOTE | 2020-10-01 18:26 | NUR ---
SHIFT SUMMARY PT WAITED NPO THROUGHOUT THE MORNING FOR PACER PLACEMENT WITH DR. MON. PT DENIED CHEST PAIN OR DISCOMFORT AND WAS ABLE TO REMAIN INDEPENDENT IN THE ROOM. PT LEFT FOR PACER PLACEMENT THIS AFTERNOON TO THE HEART CENTER AND RETURNED WITH PACER IN PLACE. VS STABLE, PT REMAINS ON RA SATS ABOVE 92%. DRESSING AT THE PACER SITE IS C/D/I. SCDs AND SLING HAVE BEEN PUT IN PLACE. PT HAS BEEN INSTRUCTED TO LIMIT USE OF THE LEFT ARM. PLAN IS FOR PT TO BE DISCHARGED TOMORROW, FOLLOW UP WITH CARDIOLOGY IN A WEEK. PT HAS BEEN INSTRUCTED TO STOP ELIQUIS UNTIL THE FOLLOW UP WITH CARDIOLOGY AND NO OTHER BLOOD THINNERS ARE TO BE ADMINISTERED. PT HAS REPORTED SOME SORENESS IN THE LEFT SHOULDER AND HAS RECEIVED TYLENOL FOR PAIN. PT ABLE TO INDEPENDENTLY USE THE URINAL IN BED AND IS CURRENTLY AWAITING DINNER.
[2020-10-02 04:30] LABS: Anion Gap 7 mmol/L (6-16); Blood Urea Nitrogen 13 mg/dL (8-24); Bun/Creatinine Ratio 14.8 (12.0-20.0); CO2, Blood 30 mmol/L (21-32); Calcium, Blood 8.3 mg/dL (8.5-10.1); Chloride, Blood 103 mmol/L (98-108); Creatinine, Blood 0.88 mg/dL (0.60-1.20); Glomerular Filtration Rate >60 (60-); Glucose, Blood 98 mg/dL (70-99); Potassium, Blood 3.5 mmol/L (3.5-5.5); Sodium, Blood 140 mmol/L (136-145)
--- NOTE | 2020-10-02 04:48 | NUR ---
SHIFT SUMMARY PT IS POST PACEMAKER PLACEMENT. VITALS STABLE, BP 130-140'S SYSTOLIC. HR 60'S. O2 SATS LOW 90'S TO HIGH 80'S ON ROOM AIR. SURGICAL SITE IS WNL, DRESSING IS CDI. PT REPORTED MINIMAL DISCOMFORT, PAIN CONTROLED WITH ACETAMINOPHEN. PT IN ARM SLIN WITH MINIMAL MOVEMENT. PT HAD A QUIET UNEVENTFUL NIGHT, IS IN STABLE CONDTION AND CURRENTLY SLEEPING.
[2020-10-02] MEDS ORDERED: ACET500 PO (12:08)
[2020-10-02] MEDS ORDERED: DOCUZEN 8.6-501 EACH PO (12:13)
[2020-10-02] MEDS ORDERED: THERA-D2000 UNIT PO (12:13)
--- NOTE | 2020-10-02 15:22 | NUR ---
DISCHARGE NOTE PT A&Ox3; CALM AND COOPERATIVE WITH CARE. PT RESTING IN BED, UP TO BATHROOM SBA. DRESSING GAUZE AND TEGADERM IN PLACE TO LEFT CHEST WALL; C/D/I; EDUCATED PT TO NOT REMOVE DRESSING UNTIL WOUND CLINIC APPOINTMENT. PT REPORTS TENDERNESS TO LEFT CHEST WALL, DENIES NEEDS FOR INTERVENTION. PT DENIES SOB, NASUEA AND DIZZINESS. VSS. NO OTHER ACUTE CHANGES NOTED. PT EDUCATED ON DISCHARGE INSTRUCTIONS, FOLLOW UP APPOINTMENTS, DR NEGRETE POST PACEMAKER INSTRUCTIONS AND MEDICAITONS. PRESCRIPTIONS FAXED TO [facility] IN [place]. PT LEFT ROOM VIA WHEELCHAIR AT 1325.
== END 2020-10-02 13:25 | disposition home or self-care (01) | DRG 244 ==
LOC: ER 12:01 → PCU 17:30
PROVIDERS: Internal Medicine Cardiovascular Disease; ADMIT Internal Medicine
PROC: 0JH604Z Insertion of Pacemaker, Single Chamber into Chest Subcutaneous Tissue and Fascia, Open Approach (ICD-10-PCS; principal; 2020-10-01)
PROC: 02HK3JZ Insertion of Pacemaker Lead into Right Ventricle, Percutaneous Approach (ICD-10-PCS; 2020-10-01)
DX: I49.5 Sick sinus syndrome (principal); Z79.01 Long term (current) use of anticoagulants; G20 Parkinson's disease; I71.4 Abdominal aortic aneurysm, without rupture; Z98.52 Vasectomy status; Z87.891 Personal history of nicotine dependence; I48.91 Unspecified atrial fibrillation; E87.6 Hypokalemia; I25.10 Atherosclerotic heart disease of native coronary artery without angina pectoris; I27.20 Pulmonary hypertension, unspecified; I34.0 Nonrheumatic mitral (valve) insufficiency; S09.90XA Unspecified injury of head, initial encounter; Z20.822 Contact with and (suspected) exposure to COVID-19; W18.30XA Fall on same level, unspecified, initial encounter; Y92.9 Unspecified place or not applicable
CPT/HCPCS: 0241U; 33207; 36415; 70450; 71045; 71046; 76937; 80048; 80053; 84484; 85025; 85027; 93005; 93010; 99152; 99153; 99285-25; A9270; C1786; C1894; C1898; J0690; J1644; J2250; J3010; J7040

== ENCOUNTER 2022-06-12 19:25 | Emergency (ER) | payer MEDICARE, OTHER ==
[~2022-06-12] VITALS: Ht 177.8 cm; Wt 78.9 kg
[~2022-06-12 19:25] MED LIST changes: +CARBIDOPA-LEVO1 EA15 PO; +DOCUZEN 8.6-501 EACH PO; +FERROUS GLUCON324 M6 PO; +FURO20 PO; +KLOR-CON M1010 MEQ PO; +OMEP20ER PO; +POTCHL20ER PO; +STOOL SOFTENER; +THERA-D2000 UNIT PO
[2022-06-12 19:58] LABS: BASOPHILS ABSOLUTE AUTO 0.02 K/mm3 (0.00-0.23); BASOPHILS PERCENT AUTO 0 % (0-2); EOSINOPHILS ABSOLUTE AUTO 0.09 K/mm3 (0.00-0.68); EOSINOPHILS PERCENT AUTO 1 % (0-6); Hematocrit 35.4 % (37.0-53.0); Hemoglobin 11.5 g/dL (13.5-17.5); IMMATURE GRAN ABSOLUTE AUTO 0.03 K/mm3 (0.00-0.10); IMMATURE GRAN PERCENT AUTO 0 % (0-1); LYMPHOCYTES ABSOLUTE AUTO 0.52 K/mm3 (0.84-5.20); LYMPHOCYTES PERCENT AUTO 5 % (21-46); MONOCYTES ABSOLUTE AUTO 0.55 K/mm3 (0.16-1.47); MONOCYTES PERCENT AUTO 5 % (4-13); Mean Corpuscular HGB 31.8 pg (26.0-34.0); Mean Corpuscular HGB Conc 32.5 g/dL (31.5-36.5); Mean Corpuscular Volume 98 fL (80-100); Mean Platelet Volume 9.7 fL (9.1-12.4); NEUTROPHILS ABSOLUTE AUTO 9.18 K/mm3 (1.96-9.15); NEUTROPHILS PERCENT AUTO 88 % (41-73); Platelet Count 201 K/mm3 (150-400); RDW Coefficient Variation 14.4 % (11.7-14.2); RDW Standard Deviation 52.3 fL (35.1-46.3); Red Blood Cell Count 3.62 M/mm3 (4.30-5.90); White Blood Cell Count 10.39 K/mm3 (4.00-11.30)
[2022-06-12 20:19] LABS: Albumin, Blood 3.1 g/dL (3.4-5.0); Albumin/Globulin Ratio 0.8 (0.8-1.8); Bilirubin, Total 0.5 mg/dL (0.1-1.0); Calcium, Blood 7.7 mg/dL (8.5-10.1); Globulin, Blood 3.9 g/dL (2.2-4.0)
[2022-06-12] MEDS ORDERED: ONELAX10 MG (22:17)
[2022-06-12] MEDS ORDERED: Nitrofurantoin100 M1 PO (22:17)
[2022-06-12] MEDS ORDERED: FINA5 PO (22:18)
[2022-06-12] MEDS ORDERED: MIRT15 (22:18)
[2022-06-12] MEDS ORDERED: AZIT250 PO (22:54)
== END 2022-06-12 23:24 | disposition home or self-care (01) ==
LOC: ER 19:25
PROVIDERS: Student in an Organized Health Care Education/Training Program
DX: J18.9 Pneumonia, unspecified organism (principal); Z87.891 Personal history of nicotine dependence; Z79.899 Other long term (current) drug therapy
CPT/HCPCS: 36415; 71046; 80053; 84484; 85025; 93005; 93010; 99284-25; A9270

== ENCOUNTER → 2022-12-27 | Outpatient (CLI) | payer MEDICARE, OTHER ==
[~2022-12-27] MED LIST changes: +AZIT250 PO; +FINA5 PO; +MIRT15; +Nitrofurantoin100 M1 PO; +ONELAX10 MG
== END | disposition home or self-care (01) ==
LOC: LAB 08:52 → LAB SHORT 08:52
DX: B35.1 Tinea unguium (principal)
CPT/HCPCS: 88304; 88312

== ENCOUNTER 2023-07-23 04:42 | Emergency (ER) | payer MEDICARE, OTHER ==
[~2023-07-23] VITALS: Ht 177.8 cm; Wt 79.4 kg
[2023-07-23 05:24] LABS: BASOPHILS ABSOLUTE AUTO 0.02 K/mm3 (0.00-0.23); BASOPHILS PERCENT AUTO 0 % (0-2); EOSINOPHILS ABSOLUTE AUTO 0.19 K/mm3 (0.00-0.68); EOSINOPHILS PERCENT AUTO 3 % (0-6); Hematocrit 38.8 % (37.0-53.0); Hemoglobin 12.7 g/dL (13.5-17.5); IMMATURE GRAN ABSOLUTE AUTO 0.06 K/mm3 (0.00-0.10); IMMATURE GRAN PERCENT AUTO 1 % (0-1); LYMPHOCYTES ABSOLUTE AUTO 0.92 K/mm3 (0.84-5.20); LYMPHOCYTES PERCENT AUTO 14 % (21-46); MONOCYTES ABSOLUTE AUTO 0.43 K/mm3 (0.16-1.47); MONOCYTES PERCENT AUTO 6 % (4-13); Mean Corpuscular HGB 32.7 pg (26.0-34.0); Mean Corpuscular HGB Conc 32.7 g/dL (31.5-36.5); Mean Corpuscular Volume 100 fL (80-100); Mean Platelet Volume 10.3 fL (9.1-12.4); NEUTROPHILS ABSOLUTE AUTO 5.15 K/mm3 (1.96-9.15); NEUTROPHILS PERCENT AUTO 76 % (41-73); Platelet Count 142 K/mm3 (150-400); RDW Standard Deviation 47.7 fL (35.1-46.3); Red Blood Cell Count 3.88 M/mm3 (4.30-5.90); White Blood Cell Count 6.77 K/mm3 (4.00-11.30)
[2023-07-23 05:40] LABS: International Normalized Ratio 1.26; Prothrombin Time Results 13.1 Sec (9.7-11.5)
[2023-07-23 05:42] LABS: Albumin, Blood 3.4 g/dL (3.4-5.0); Bilirubin, Total 0.6 mg/dL (0.1-1.0); Bun/Creatinine Ratio 23.3 (12.0-20.0); Calcium, Blood 8.8 mg/dL (8.5-10.1); Creatinine, Blood 1.16 mg/dL (0.60-1.20); Globulin, Blood 3.5 g/dL (2.2-4.0); Potassium, Blood 3.9 mmol/L (3.5-5.5); Total Protein, Blood 6.9 g/dL (6.4-8.2)
[2023-07-23 07:20] LABS: Influenza A, PCR NEGATIVE (NEGATIVE); Influenza B, PCR NEGATIVE (NEGATIVE); Resp Syncytial Virus, PCR NEGATIVE (NEGATIVE); SARS-Cov-2 (COVID-19) PCR, MMC NEGATIVE (NEGATIVE)
[2023-07-23 09:16] LABS: Source, Urine Straight Cath
[2023-07-23 09:19] LABS: Appearance, Urine Clear (Clear); Bilirubin, Urine Neg (Neg); Blood, Urine Neg (Neg); Color, Urine Yellow (P-Yellow); Glucose Qualitative, Urine Neg (Neg); Ketones, Urine Neg (Neg); Leukocyte Esterase, Urine Neg (Neg); Nitrite, Urine Neg (Neg); Protein, Urine Neg (Neg); Urobilinogen, Urine NORM (Normal); pH, Urine 6.5 (5.0-8.0)
[2023-07-23] MEDS ORDERED: Percocet 5-3251 EACH PO ×2 (10:31→10:34)
[2023-07-23] MEDS ORDERED: DOC250 PO (10:31)
[2023-07-23 10:32] VITALS: BP 147/76
[2023-07-24] MEDS ORDERED: METOPROLOL SUCC25 MG PO (14:37)
[2023-07-24] MEDS ORDERED: REMERON1510 PO (14:37)
[2023-07-24] MEDS ORDERED: LOSA50 PO (14:40)
[2023-07-24] MEDS ORDERED: QUETIAPINE FUMA25 MG PO (14:41)
[2023-07-24] MEDS ORDERED: ELIQUIS5 M3 PO (14:43)
[2023-07-24] MEDS ORDERED: CARVEDILOL6.25 MG PO (14:43)
[2023-07-24] MEDS ORDERED: LASIX20 M1 PO (17:40)
[2023-07-24] MEDS ORDERED: FURO20 PO (17:40)
== END 2023-07-23 11:39 | disposition home or self-care (01) ==
LOC: ER 04:42
PROVIDERS: Emergency Medicine; Student in an Organized Health Care Education/Training Program
DX: S30.0XXA Contusion of lower back and pelvis, initial encounter (principal); W18.30XA Fall on same level, unspecified, initial encounter; R55 Syncope and collapse; G20.A1 Parkinson's disease without dyskinesia, without mention of fluctuations; I10 Essential (primary) hypertension; E78.5 Hyperlipidemia, unspecified; N40.0 Benign prostatic hyperplasia without lower urinary tract symptoms; Z79.899 Other long term (current) drug therapy; Z87.891 Personal history of nicotine dependence; Z20.822 Contact with and (suspected) exposure to COVID-19
CPT/HCPCS: 0241U; 71045; 72100; 80053; 81003; 85025; 85610; 85730; 93005; 93010; 99285-25; A9270

== ENCOUNTER 2023-07-24 08:31 | Inpatient (IN) | payer OTHER, MEDICARE ==
[~2023-07-24 08:31] MED LIST changes: +DOC250 PO; +Percocet 5-3251 EACH PO
[2023-07-24 08:57] LABS: BASOPHILS ABSOLUTE AUTO 0.02 K/mm3 (0.00-0.23); BASOPHILS PERCENT AUTO 0 % (0-2); EOSINOPHILS ABSOLUTE AUTO 0.18 K/mm3 (0.00-0.68); EOSINOPHILS PERCENT AUTO 2 % (0-6); Hemoglobin 12.4 g/dL (13.5-17.5); IMMATURE GRAN ABSOLUTE AUTO 0.03 K/mm3 (0.00-0.10); IMMATURE GRAN PERCENT AUTO 0 % (0-1); LYMPHOCYTES ABSOLUTE AUTO 0.66 K/mm3 (0.84-5.20); LYMPHOCYTES PERCENT AUTO 8 % (21-46); MONOCYTES PERCENT AUTO 6 % (4-13); Mean Corpuscular HGB 32.4 pg (26.0-34.0); Mean Corpuscular HGB Conc 33.5 g/dL (31.5-36.5); Mean Corpuscular Volume 97 fL (80-100); Mean Platelet Volume 10.5 fL (9.1-12.4); NEUTROPHILS ABSOLUTE AUTO 6.95 K/mm3 (1.96-9.15); NEUTROPHILS PERCENT AUTO 83 % (41-73); Platelet Count 144 K/mm3 (150-400); RDW Coefficient Variation 12.9 % (11.7-14.2); RDW Standard Deviation 45.8 fL (35.1-46.3); Red Blood Cell Count 3.83 M/mm3 (4.30-5.90); White Blood Cell Count 8.34 K/mm3 (4.00-11.30)
[2023-07-24 09:15] LABS: Albumin, Blood 3.2 g/dL (3.4-5.0); Albumin/Globulin Ratio 0.8 (0.8-1.8); Bun/Creatinine Ratio 22.3 (12.0-20.0); Calcium, Blood 8.8 mg/dL (8.5-10.1); Creatinine, Blood 1.03 mg/dL (0.60-1.20); Globulin, Blood 3.9 g/dL (2.2-4.0); Potassium, Blood 3.8 mmol/L (3.5-5.5); Total Protein, Blood 7.1 g/dL (6.4-8.2)
[2023-07-24] MEDS ORDERED: REMERON1510 PO (14:37)
[2023-07-24] MEDS ORDERED: METOPROLOL SUCC25 MG PO (14:37)
[2023-07-24] MEDS ORDERED: LOSA50 PO (14:40)
[2023-07-24] MEDS ORDERED: QUETIAPINE FUMA25 MG PO (14:41)
[2023-07-24] MEDS ORDERED: CARVEDILOL6.25 MG PO (14:43)
[2023-07-24] MEDS ORDERED: ELIQUIS5 M3 PO (14:43)
[2023-07-24] MEDS ORDERED: FURO20 PO (17:40)
[2023-07-24] MEDS ORDERED: LASIX20 M1 PO (17:40)
[2023-07-24 18:25] VITALS: BP 118/73
--- NOTE | 2023-07-24 18:43 | NUR ---
PATIENT ARRIVED FROM ED AT 1814. REPORT RECEIVED FROM NICOLE DAVIS. VITALS STABLE. PT ON 4L O2 VIA NC. DENIES ANY PAIN AT THIS TIME. RESTING COMFORTABLY IN BED WITH CALL LIGHT IN REACH.
--- NOTE | 2023-07-25 00:36 | NUR ---
PT C/O BACK PAIN POST FALLING AT HOME BUT REFUSED TYLENOL STATING "HIS MERCHANDISE PLANNER TOLD HIM IT'S CONTRAINDICATED W/HOME MEDS." MADE AWARE AND TRAMADOL 5OMG PO X1 RX'D AND RECEIVED, AWAITING EFFECT.
--- NOTE | 2023-07-25 04:36 | NUR ---
SUMMARY: PT A/OX2-3 BUT FORGETFULL AND REQ'S REMINDERS AT TIMES. HE'S PLEASANT AND COOPERATIVE W/CARE BUT DID AWAKE DISORIENTED AND REFUSING MEDS/ADL'S. HE CONT'S TO BECOME DIZZY WHEN UPRIGHT OR AT OOB SO REMAINS ON BEDREST W/BED ALARM ON FOR FALL RISK/IMPULSIVITY. STAFF ATTEMPTED TO PERFORM ORTHOSTATICS RX'D BUT PT NONCOMPLIANT THIS AM. HE WAS ASSISTED W/URINAL AND ATTENDS CHANGED PRN FOR URGE INCONTINENCE WA. SCATTERED BRUISES OBSERVED FROM FALLS AT HOME AND HE RECEIVED TRAMADOL X1 FOR REPORT OF BACK PAIN. PT REMAINS ON TELE IN AFIB AT 70'S-90'S BPM W/OCC VENT PACED BEATS. NO ACUTE CHANGES, SPO2 WNL ON 4L NC AND VSS/AFEBRILE. WCTM AND REPORT TO DAY RN.
--- NOTE | 2023-07-25 05:47 | NUR ---
PT VERY DISORIENTED THIS AM AND CONT'S TO REFUSE AM MEDS/VITALS DESPITE EXPLANATION AND ENCOURAGEMENT.
[2023-07-25 06:49] LABS: Bun/Creatinine Ratio 18.8 (12.0-20.0); Calcium, Blood 8.6 mg/dL (8.5-10.1); Creatinine, Blood 1.33 mg/dL (0.60-1.20); Magnesium, Blood 2.1 mg/dL (1.6-2.4); Potassium, Blood 3.8 mmol/L (3.5-5.5)
[2023-07-25 07:33] VITALS: BP 104/60
[2023-07-25 07:46] LABS: BASOPHILS ABSOLUTE AUTO 0.02 K/mm3 (0.00-0.23); BASOPHILS PERCENT AUTO 0 % (0-2); EOSINOPHILS ABSOLUTE AUTO 0.37 K/mm3 (0.00-0.68); EOSINOPHILS PERCENT AUTO 4 % (0-6); IMMATURE GRAN ABSOLUTE AUTO 0.03 K/mm3 (0.00-0.10); IMMATURE GRAN PERCENT AUTO 0 % (0-1); LYMPHOCYTES ABSOLUTE AUTO 0.73 K/mm3 (0.84-5.20); LYMPHOCYTES PERCENT AUTO 9 % (21-46); MONOCYTES PERCENT AUTO 9 % (4-13); Mean Corpuscular HGB 32.8 pg (26.0-34.0); Mean Corpuscular HGB Conc 33.3 g/dL (31.5-36.5); Mean Corpuscular Volume 98 fL (80-100); Mean Platelet Volume 11.1 fL (9.1-12.4); NEUTROPHILS ABSOLUTE AUTO 6.66 K/mm3 (1.96-9.15); NEUTROPHILS PERCENT AUTO 77 % (41-73); RDW Coefficient Variation 12.9 % (11.7-14.2); RDW Standard Deviation 46.4 fL (35.1-46.3); Red Blood Cell Count 3.66 M/mm3 (4.30-5.90); White Blood Cell Count 8.61 K/mm3 (4.00-11.30)
[2023-07-25 11:28] LABS: Platelet Count 101 K/mm3 (150-400)
[2023-07-25 15:31] VITALS: BP 110/71
--- NOTE | 2023-07-25 17:14 | NUR ---
PT IS A/O, PLESANT AND COOPERATIVE. HE IS EATING AND DRINKING WELL. FAMILY HAS BEEN AT BEDSIDE THROUGHOUT THIS SHIFT. HE WORKED WITH PT AND TOLORATED WELL. HIS BED IS IN THE LOW POSITON AND CALL LIGHT IS WITIN REACH.
[2023-07-25 19:27] VITALS: BP 117/69
--- NOTE | 2023-07-25 21:09 | NUR ---
PATIENT AGITATED AND ANXIOUS, WANTING TO LEAVE AND GO HOME. PATIENT DOESNT BELIEVE ANYTHING THAT ANYONE IS SAYING AND THAT HIS NURSES WOULDNT TREAT HIM THIS WAY-WHEN ASKED THE PATIENT HOW THE NURSES ARE TREATING HIM HE SAYS THIS WAY. PATIENT IS VERY CONFUSED AND NON-COMPLIANT WITH CARE. PATIENT TRYING TO BITE AND KICK AT NURSES. PATIENT TRYING TO THROW HIS TELE BOX-WHEN ASKED WHY HE STATES "IT WILL MAKE YOU MAD". PATIENT WAS STANDING AT BEDSIDE UNSTEADY, NOT ALLOWING STAFF TO HELP.
--- NOTE | 2023-07-26 | NUR ---
TALKED WITH GAYLE VALENTINA X2 MICHAEL. SHE REPORTS THAT HER GRANDFATHER DOES NOT GET COMBATIVE OR DISORIENTED AT BASELINE AND THIS BEHAVIOR IS NOT USUAL. VALENTINA REPORTS THE LAST TIME HER GRANDFATHER HAD BEHAVIORS WAS WHEN HE WAS IN [facility] AND HER GRANFATHERS PARKINSONS MEDICATION WERE TAKEN AT A DIFFERENT TIME THEN AT HOME-SHE REPORTS HE TAKES HIS PARKINSONS MEDICATION AT 0600,1200 AND 1800 FAITHFULLY EVERYDAY AT HOME. I LET VALENTINA KNOW AT HER FIRST CALL AROUND APPROX. 2215 THAT HER GRANDFATHER IS IN A POSIE FOR HIS CONFUSION, COMBATIVE BEHAVIOR AT BITING AND THAT WE ARE REASSESSING THE PATIENTS NEED FOR A POSIE EVERY 2 HOURS. VALENTINA TALKED WITH GRANDFATHER AROUND 2245. ON SHANE SECOND CALL BACK TO CHECK IN ON HER GRANDFATHER SHE REPORTED THAT HE GRANDFATHER SEEMED VERY CONFUSED AND WANTED HER TO CALL THE FITNESS STUDIES TEACHER. SHE DISCUSSED IF IT WOULD BE BENEFICAL OR POTENTIALLY WORSE OFF FOR HER TO COME IN TO SEE HER GRANDFATHER-ZEV[facility]LLYN [facility] FEAR OF FURTHER AGITATION BY HER GRANDFATHER.
--- NOTE | 2023-07-26 07:31 | NUR ---
SHIFT SUMMARY PATIENT ALERT AND ORIENTED TO SELF, PLACE, AND PERSON WITH CONFUSION THAT PROGRESSED LATER INTO THE SHIFT-SEE PREVIOUS NOTE. PATIENT IRRITABLE AT TIMES T/O NIGHT. PATIENT SLEEPING WELL THIS MORNING, PATIENT DID NOT SLEEP WELL T/O NIGHT. PATIENT IS ON 1.5 L'S VIA NASAL CANNULA O2 SATING >93%-RA AT [facility]. PATIENT ON TELE. PATIENTS BED IS LOCKED IN LOWEST POSITION WITH CALL LIGHT IN REACH-BED EXIT ALARM ENGAGED FOR SAFETY. PATIENT IMPULSIVE.
[2023-07-26 08:42] VITALS: BP 123/84
[2023-07-26 10:09] LABS: BASOPHILS ABSOLUTE AUTO 0.02 K/mm3 (0.00-0.23); BASOPHILS PERCENT AUTO 0 % (0-2); EOSINOPHILS ABSOLUTE AUTO 0.28 K/mm3 (0.00-0.68); EOSINOPHILS PERCENT AUTO 3 % (0-6); Hematocrit 37.7 % (37.0-53.0); Hemoglobin 12.4 g/dL (13.5-17.5); IMMATURE GRAN ABSOLUTE AUTO 0.02 K/mm3 (0.00-0.10); IMMATURE GRAN PERCENT AUTO 0 % (0-1); LYMPHOCYTES ABSOLUTE AUTO 0.58 K/mm3 (0.84-5.20); LYMPHOCYTES PERCENT AUTO 7 % (21-46); MONOCYTES ABSOLUTE AUTO 0.57 K/mm3 (0.16-1.47); MONOCYTES PERCENT AUTO 7 % (4-13); Mean Corpuscular HGB 32.5 pg (26.0-34.0); Mean Corpuscular HGB Conc 32.9 g/dL (31.5-36.5); Mean Corpuscular Volume 99 fL (80-100); Mean Platelet Volume 10.3 fL (9.1-12.4); NEUTROPHILS ABSOLUTE AUTO 7.04 K/mm3 (1.96-9.15); NEUTROPHILS PERCENT AUTO 83 % (41-73); Platelet Count 140 K/mm3 (150-400); RDW Coefficient Variation 12.9 % (11.7-14.2); RDW Standard Deviation 46.2 fL (35.1-46.3); Red Blood Cell Count 3.82 M/mm3 (4.30-5.90); White Blood Cell Count 8.51 K/mm3 (4.00-11.30)
[2023-07-26 10:24] LABS: Anion Gap 8 mmol/L (6-16); Blood Urea Nitrogen 37 mg/dL (8-24); Bun/Creatinine Ratio 31.9 (12.0-20.0); CO2, Blood 31 mmol/L (21-32); Calcium, Blood 9.2 mg/dL (8.5-10.1); Chloride, Blood 101 mmol/L (98-108); Creatinine, Blood 1.16 mg/dL (0.60-1.20); Glomerular Filtration Rate 63 (60-); Glucose, Blood 137 mg/dL (70-99); Potassium, Blood 3.8 mmol/L (3.5-5.5); Sodium, Blood 140 mmol/L (136-145)
[2023-07-26 15:25] VITALS: BP 110/55
--- NOTE | 2023-07-26 17:48 | NUR ---
PATIENT CONTINUED TO ESCALTE AGGITATION AND AGRESSIVE, SHOVING SAFE AWAY, REFUSING TO BE CLEANED, PATIENT BEGAN SWINGING ARMS AT STAFF, SECURITY IN ROOM, REPORTED TO DR REYNOSO, 5MG ZYPREXA GIVEN, PATIENT CONTNUES TO SAY "YOU ARE ALL LYING AND TRYING TO KILL ME, I WANT TO GO HOME!", PATIENT UNABLE TO BE REORIENTED OR DIRECTED, OOB IN CHAIR, GAIT BELT ON, CHAIR ALARM ON
--- NOTE | 2023-07-26 17:51 | NUR ---
PATIENT PLEASANT THROUGHOUT THE DAY, AT 1400 PATIENT BEGAN BEING DEFENSIVE AND REFUSING CARE. PATIENT AGITATION INCREASED, YELLING, SWINGING AT STAFF, AND KICKING. REPORTED TO DR REYNOSO, PATIENT MEDICATED WITH ZYPREXA, VSS HAVE BEEN STABLE, SATS RA 95%, OOB IN CHAIR, CHAIR ALARM ON, EATING DINNER. WILL RELAY TO PM RN, RIGHT ELBOW AREA PURPLE FROM PATIENT HITTING AT STAFF LAST NIGHT, PATIENT TAKES ELIQUIST
[2023-07-26 19:45] VITALS: BP 117/65
--- NOTE | 2023-07-27 | NUR ---
PATIENT PULLED OUT IV. PATIENT WOULD NOT ALLOW FOR PLACEMENT OF NEW IV. HOSPITALIST CALLED AND NOTIFIED-HOSPITALIST ORDERED FOR NO IV ACCESS.
--- NOTE | 2023-07-27 05:15 | NUR ---
SHIFT SUMMARY PATIENT ANXIOUS T/O SHIFT WANTS TO LEAVE, CONFUSED AT WHERE HE IS AT, AT TIMES. PATIENT REFUSED 2100 MEDS-PATIENT STATES HE ONLY WANTS HIS PARKINSONS MEDS. PATIENT ASKED FOR HIS PARKINSONS MEDS-ABLE TO TALK WITH PATIENT AND ASKED IF HE TAKES HIS MEDS AT 6AM AT HOME-PATIENT RESPONDED WITH "YES" TOLD PATIENT THE TIME WAS 1AM AND PATIENT WAS OKAY WITH WAITING TIL 6AM FOR PARKINSONS MEDS. GAYLE MONTGOMERY CALLED AND TALKED WITH PATIENT TONIGHT. PATIENT UP TO USE THE BATHROOM, UNSTEADY ON FEET. PATIENT HAS BEEN MORE COOPERATIVE WITH CARE TONIGHT THAN THE PREVIOUS NIGHT. BED IS LOCKED IN THE LOWEST POSITION WITH CALL LIGHT IN REACH. BED EXIT ALARM ENGAGED FOR SAFETY PATIENT CAN BE IMPULSIVE.
[2023-07-27 08:39] LABS: Albumin, Blood 2.8 g/dL (3.4-5.0); Anion Gap 4 mmol/L (6-16); Blood Urea Nitrogen 44 mg/dL (8-24); Bun/Creatinine Ratio 34.9 (12.0-20.0); CO2, Blood 33 mmol/L (21-32); Calcium, Blood 8.8 mg/dL (8.5-10.1); Chloride, Blood 102 mmol/L (98-108); Creatinine, Blood 1.26 mg/dL (0.60-1.20); Glomerular Filtration Rate 57 (60-); Glucose, Blood 111 mg/dL (70-99); Phosphorus, Blood 3.9 mg/dL (2.5-4.9); Potassium, Blood 4.2 mmol/L (3.5-5.5); Sodium, Blood 139 mmol/L (136-145)
[2023-07-27 09:01] VITALS: BP 116/84
[2023-07-27 12:12] LABS: Influenza A, PCR NEGATIVE (NEGATIVE); Influenza B, PCR NEGATIVE (NEGATIVE); Resp Syncytial Virus, PCR NEGATIVE (NEGATIVE); SARS-Cov-2 (COVID-19) PCR, MMC NEGATIVE (NEGATIVE)
[2023-07-27] MEDS ORDERED: QUET25 PO (12:36)
[2023-07-27] MEDS ORDERED: MECL25 PO (12:36)
[2023-07-27] MEDS ORDERED: TRAM50 PO (12:36)
[2023-07-27] MEDS ORDERED: FERSU300 PO (13:24)
--- NOTE | 2023-07-27 15:07 | NUR ---
SHIFT/DISCHARGE SUMMARY Pt remains alert to self this shift. Pleasantly confused. Bed/chair alarm on. Reminded pt not to get up without ast. Pt 1 person ast with fww to bathroom. Cont/icontinent. Brief in place. [facility] here for transfer.
== END 2023-07-27 15:15 | DRG 291 ==
LOC: ER 08:31 → MEDS 15:44 → ENPENDDIS 07-27 11:23 → MEDS 07-27 15:15
PROVIDERS: Physician Assistant; ADMIT Family Medicine
DX: I13.0 Hypertensive heart and chronic kidney disease with heart failure and stage 1 through stage 4 chronic kidney disease, or unspecified chronic kidney disease (principal); I50.23 Acute on chronic systolic (congestive) heart failure; J96.01 Acute respiratory failure with hypoxia; F05 Delirium due to known physiological condition; I08.3 Combined rheumatic disorders of mitral, aortic and tricuspid valves; E83.42 Hypomagnesemia; I48.91 Unspecified atrial fibrillation; G20.A1 Parkinson's disease without dyskinesia, without mention of fluctuations; D63.1 Anemia in chronic kidney disease; N18.30 Chronic kidney disease, stage 3 unspecified; D69.6 Thrombocytopenia, unspecified; E78.5 Hyperlipidemia, unspecified; R42 Dizziness and giddiness; N40.0 Benign prostatic hyperplasia without lower urinary tract symptoms; K21.9 Gastro-esophageal reflux disease without esophagitis; Z95.0 Presence of cardiac pacemaker; Z79.2 Long term (current) use of antibiotics; Z87.891 Personal history of nicotine dependence
CPT/HCPCS: 0241U; 36415; 71045; 71046; 80048; 80053; 80069; 83735; 83880; 84484; 85025; 85049; 93005; 93010; 93306; 94760; 96365; 96366; 96375; 97110; 97116; 97162; 97530; 99285-25; A9270; J1940; J2060; J2405; J3475